=== PATIENT | female | born 1990 | race Caucasian/White ===

== ENCOUNTER → 2019-02-03 13:32 | Outpatient (CLI) | payer OTHER, SELFPAY ==
--- NOTE | 2019-02-03 | DI.US.S_ITS ---
ULTRASOUND OF LEFT BREAST: 02/03/2019 CLINICAL: Palpable left breast lumps (2). Comparison is made to exam dated: 02/03/2019 [facility]. Real-time ultrasound of the left breast was performed on the areas of interest. Hightower scale images of the real-time examination were reviewed. IMPRESSION: NEGATIVE There is no sonographic evidence of malignancy. There are no mammographic or sonographic abnormalities seen in the left breast to correspond with the palpable abnormalities at 4 and 11 o'clock, however, clinical followup is recommended. This exam was interpreted at Station ID: [id number]. Electronically Signed By: Nisha charlton/:02/05/2019 09:10:22 letter sent: Clinical Evaluation Ultrasound BI-RADS: 1 Negative
--- NOTE | 2019-02-03 | DI.MG.S_ITS ---
BILATERAL DIGITAL DIAGNOSTIC MAMMOGRAM 3D/2D: 02/03/2019 CLINICAL: Bilateral breast mass. No prior exams were available for comparison. The tissue of both breasts is extremely dense, which lowers the sensitivity of mammography. No significant masses, calcifications, or other findings are seen in either breast. IMPRESSION: INCOMPLETE: NEEDS ADDITIONAL IMAGING EVALUATION There are no mammographic abnormalities seen in the left breast to correspond with the palpable abnormalities at 1 and 3 o'clock, however, targeted ultrasound of the left breast is recommended and will be performed immediately following this exam. There is no mammographic abnormality seen in the right breast to correspond with the palpable abnormality felt by the clinican on recent clinical breast exam, however, the patient could not recall the exact location of the palpable abnormality. Clinical followup is recommended. This exam was interpreted at Station ID: [id number]. NOTE: For mammograms, a report in lay terms will be sent to the patient. Approximately 15% of breast malignancies will not be visualized mammographically. In the management of a palpable breast mass, a negative mammogram must not discourage biopsy of a clinically suspicious lesion. Electronically Signed By: Nisha Wu M.D. lk/:02/03/2019 14:27:14 ACR BI-RADS Category 0: Incomplete [id number]
== END ==
PROVIDERS: PCP Internal Medicine; Visit Provider Internal Medicine
DX: R92.8 Other abnormal and inconclusive findings on diagnostic imaging of breast (principal); N63.10 Unspecified lump in the right breast, unspecified quadrant; N63.20 Unspecified lump in the left breast, unspecified quadrant
CPT/HCPCS: 76642; 77066; G0279